=== PATIENT | male | born 1955 | race Caucasian/White ===

== ENCOUNTER 2017-12-12 09:18 | Emergency (ER) | payer OTHER ==
[~2017-12-12] VITALS: Ht 177.8 cm; Wt 99.0 kg
[2017-12-12 09:25] VITALS: TEMP 36.7; Ht 177.8 cm; Wt 99.0 kg
[2017-12-12] MEDS ORDERED: EMPA1TAB PO (09:48)
[2017-12-12] MEDS ORDERED: METF-384 PO (09:48)
[2017-12-12] MEDS ORDERED: TAMS0.4C38 PO (09:59)
[2017-12-12] MEDS ORDERED: FENO160T PO (09:59)
[2017-12-12] MEDS ORDERED: ASPI81TA28 PO (10:02)
--- NOTE | 2017-12-12 10:27 | DIAGNOSTIC IMAGING REPORT ---
R KNEE 1 OR 2 VIEWS ROUTINE CLINICAL HISTORY: Knee pain status post trauma COMPARISON: None. DISCUSSION: No acute fractures are visualized. There are osteoarthritic changes present. There are small dorsal patellar spurs. IMPRESSION: No acute fractures or dislocations identified. Electronically signed by: Nixon Girard M.D. 12/12/2017 10:26 AM Dictated Date/Time: 12/12/2017 10:25 AM
--- NOTE | 2017-12-12 10:49 | EMERGENCY ROOM VISIT NOTE ---
History Report prepared by Gabby: Ryanne Gonzales Under the Supervision of: Dr. Domenico Erickson D.O. First contact with patient: 09:41 Chief Complaint: LEG PAIN,LEG INJURY Stated Complaint: RIGHT THIGH PAIN FROM FALL History of Present Illness The patient is a 62 year old male who presents to the Emergency Room with complaints of constant left thigh pain beginning yesterday afternoon. The patient reports he fell down two stairs yesterday afternoon and his left leg twisted behind him. He denies any impact directly to his left leg. He reports he heard a "pop" in his leg when he fell. He denies any difficulty walking but reports increased pain with walking. The patient takes a baby aspirin daily. Source of History: patient Onset: yesterday afternoon Position: leg (left) Quality: other (pain) Timing: constant Modifying Factors (Worsening): movement Review of Systems See HPI for pertinent positives & negatives. A total of 10 systems reviewed and were otherwise negative. Past Medical & Surgical Medical Problems: (1) No Known Active Medical Problems Family History Patient reports no known family medical history. Social History Smoking Status: Never Smoker Marital Status: Housing Status: lives with significant other Current/Historical Medications Scheduled Aspirin (Aspirin Ec), 81 MG PO DAILY Empagliflozin (Jardiance), 10 MG PO DAILY Fenofibrate (Tricor), 160 MG PO DAILY Metformin Hcl (Glucophage), 1,000 MG PO BID Tamsulosin Hcl (Flomax), 0.4 MG PO DAILY Allergies Coded Allergies: No Known Allergies (Unverified , 12/12/17) Physical Exam Vital Signs Date Time Temp Pulse Resp B/P (MAP) Pulse Ox O2 Delivery O2 Flow Rate FiO2 12/12/17 09:25 36.7 72 18 154/75 94 Room Air Physical Exam CONSTITUTIONAL/VITAL SIGNS: Reviewed / noted above. GENERAL: Non-toxic in appearance. INTEGUMENTARY: Warm, dry, and [place]. HEAD: Normocephalic. EYES: without scleral icterus or trauma. ENT/OROPHARYNX: clear and moist. LYMPHADENOPATHY/NECK: Is supple without lymphadenopathy or meningismus. RESPIRATORY: Lungs clear and equal. CARDIOVASCULAR: Regular rate and rhythm. GI/ABDOMEN: Soft and nontender. No organomegaly or pulsatile mass. No rebound or guarding. Normal bowel sounds. EXTREMITIES: Warm and well perfused. Mild tenderness to the distal thigh just superior and lateral to the patella. BACK: No CVA tenderness. NEUROLOGICAL: Intact without focal deficits. PSYCHIATRIC: normal affect. MUSCULOSKELETAL: Normally developed with good muscle tone. Medical Decision & Procedures ER Provider Diagnostic Interpretation: Radiology results as stated below per my review and radiologist interpretation: R KNEE 1 OR 2 VIEWS ROUTINE DISCUSSION: No acute fractures are visualized. There are osteoarthritic changes present. There are small dorsal patellar spurs. IMPRESSION: No acute fractures or dislocations identified. Electronically signed by: Nixon Girard M.D. ED Course 0947: Previous medical records were reviewed. The patient was evaluated in room A10. A complete history and physical examination was performed. 1051: I updated the patient on his test results. 1058: On reevaluation, the patient is resting comfortably. I discussed the results and findings with the patient. He verbalized agreement of the treatment plan. The patient was discharged home. Medical Decision Differential diagnosis: Etiologies such as fracture, dislocation, neurovascular compromise, compartment syndrome, soft tissue injury, as well as others were entertained. This is a 62-year-old male who presents to the ED with a chief complaint of right lower thigh pain. The patient states that he missed a step when he opened a door and was stepping out of a room and this caused him to fall. He states that he hyper flexed his lower leg and fell onto his right side. He denies striking his head or loss of consciousness. The patient reports discomfort in the right upper knee area at the distal end of the thigh. There is no obvious visible trauma or significant swelling. He does have some mild tenderness to the distal right thigh just superior and lateral to the patella. The patient has been able to walk on it. He states that he just wanted to make sure that nothing was significantly injured. X-rays did not show any significant findings. The patient was told the results. He is felt to be stable for discharge. Medication Reconcilliation Current Medication List: was personally reviewed by me Blood Pressure Screening Patient's blood pressure: Elevated blood pressure Blood pressure disposition: Elevated BP felt to be situational Impression Primary Impression: Strain of knee and leg, right Scribe Attestation The scribe's documentation has been prepared under my direction and personally reviewed by me in its entirety. I confirm that the note above accurately reflects all work, treatment, procedures, and medical decision making performed by me. Departure Information Dispostion Home / Self-Care Referrals No Doctor, Assigned (PCP) Forms HOME CARE DOCUMENTATION FORM, IMPORTANT VISIT INFORMATION Patient Instructions My [facility] Additional Instructions Follow-up with your doctor for further care and evaluation in 7 days if symptoms persist. Return to the emergency department for worsening or new symptoms or any concerns. You have been examined and treated today on an emergency basis only. This is not a substitute for, or an effort to provide, complete comprehensive medical care. It is impossible to recognize and treat all injuries or illnesses in a single emergency department visit. It is therefore important that you follow up closely with your doctor. Call as soon as possible for an appointment.
[2017-12-12 11:16] VITALS: BP 110/52; PULSE 58; O2SAT 95
== END 2017-12-12 11:24 | disposition home or self-care (01) ==
LOC: C.EDB 09:19 → C.EDA 11:24
DX: S86.812A Strain of other muscle(s) and tendon(s) at lower leg level, left leg, initial encounter (principal); S76.912A Strain of unspecified muscles, fascia and tendons at thigh level, left thigh, initial encounter; W10.9XXA Fall (on) (from) unspecified stairs and steps, initial encounter; Z79.82 Long term (current) use of aspirin